=== PATIENT | female | born 1990 | race Caucasian/White ===

== ENCOUNTER 2019-04-26 10:13 | Day surgery (SDC) | payer BC ==
[2019-04-25 12:46] LABS: BASOPHILS % (AUTO) 0.5 % (0.0-2.0); EOSINOPHILS # (AUTO) 0.2 K/uL (0.0-0.4); EOSINOPHILS % (AUTO) 2.3 % (0.0-4.0); HEMATOCRIT 41.5 % (36-48); HEMOGLOBIN 14.3 g/dL (12.0-16.0); LYMPHOCYTES # (AUTO) 2.7 K/uL (1.0-5.5); LYMPHOCYTES % (AUTO) 27.9 % (20.5-51.5); MEAN CORPUSCULAR HEMOGLOBIN 32 pg (27-31); MEAN CORPUSCULAR HGB CONC 35 % (32-36); MEAN CORPUSCULAR VOLUME 93 fL (79.0-98.0); MONOCYTES # (AUTO) 0.8 K/uL (0.0-1.0); MONOCYTES % (AUTO) 7.7 % (1.7-9.3); NEUTROPHILS % (AUTO) 61.6 % (40.0-70.0); PLATELET COUNT (AUTO) 292 K/uL (130-430); RED BLOOD CELL COUNT(AUTO) 4.46 MIL/uL (4.2-6.2); RED CELL DISTRIBUTION WIDTH 13.6 % (9.0-15.0); WHITE BLOOD COUNT (AUTO) 9.8 K/uL (4.8-10.8)
[2019-04-25 12:58] LABS: INR 1.1 (0.8-1.2); PROTHROMBIN TIME 11.2 SECS (9.5-12.5)
[~2019-04-26] VITALS: Ht 149.9 cm; Wt 72.6 kg
[2019-04-26] MEDS ORDERED: fentaNYL CITRATE 250 MCG/5 ML AMP IV ONE (13:00)
[2019-04-26] MEDS ORDERED: PROPOFOL 200MG/ 20ML VIAL (DIPRIVAN) IV ONE (13:00)
[2019-04-26] MEDS ORDERED: MIDAZOLAM HCL 5 MG/5 ML VIAL IVP ONE (13:00)
[2019-04-26] MEDS ORDERED: CEFAZOLIN 2 GM IVPB PREMIX 50 ML IV ONE (13:00)
[2019-04-26] MEDS ORDERED: ONDANSETRON HCL 4 MG/2 ML VIAL IVP ONE (13:00)
[2019-04-26] MEDS ORDERED: LR 1,000 ML IV.SOLN IV ONE (13:00)
[2019-04-26] MEDS ORDERED: NS IRRIG SOLN 1000 ML IR ONE (13:00)
[2019-04-26] MEDS ORDERED: SEVOFLURANE 15 MIN GAS INH ONE (13:00)
[2019-04-26] MEDS ORDERED: ROCURONIUM BROMIDE 10 MG/ML (ZEMURON) IV ONE (13:00)
[2019-04-26 14:30] VITALS: BP_SYST 114
[2019-04-26] MEDS: MORPHINE 2 MG/ML INJ. SYRINGE IVP PRN ×2 (14:35→14:55)
[2019-04-26] MEDS ORDERED: MORPHINE 4 MG/ML INJ. SYRINGE ONE (14:46)
[2019-04-26] MEDS ORDERED: ONDANSETRON HCL 4 MG/2 ML VIAL IVP PRN (16:00)
[2019-04-26] MEDS ORDERED: LR 1,000 ML IV ONE (16:00)
[2019-04-26] MEDS ORDERED: MORPHINE SULFATE 10 MG/ML VIAL IVP PRN (16:45)
[2019-04-26] MEDS ORDERED: MORPHINE SULFATE 10 MG/ML VIAL ONE (16:55)
[2019-04-26] MEDS ORDERED: MORPHINE 4 MG/ML INJ. SYRINGE IVP PRN (17:15)
[2019-04-26] MEDS ORDERED: KETOROLAC TROMETHAMINE 30 MG VIAL IVP PRN (20:30)
[2019-04-26] MEDS: PIPERACILLIN/TAZO 3.375/DEX-IS 50 ML IV SCH (20:48)
[2019-04-26] MEDS ORDERED: KETOROLAC TROMETHAMINE 30 MG VIAL ONE (20:57)
[2019-04-26] MEDS ORDERED: KETOROLAC TROMETHAMINE 30 MG VIAL IM SCH (23:00)
[2019-04-27] MEDS: PIPERACILLIN/TAZO 3.375/DEX-IS 50 ML IV SCH ×3 (02:53→14:40)
[2019-04-27] MEDS ORDERED: KETOROLAC TROMETHAMINE 30 MG VIAL IVP PRN (05:00)
[2019-04-27 07:14] LABS: BASOPHILS % (AUTO) 0.6 % (0.0-2.0); EOSINOPHILS # (AUTO) 0.2 K/uL (0.0-0.4); EOSINOPHILS % (AUTO) 2.7 % (0.0-4.0); HEMOGLOBIN 12.3 g/dL (12.0-16.0); LYMPHOCYTES # (AUTO) 2.4 K/uL (1.0-5.5); LYMPHOCYTES % (AUTO) 29.7 % (20.5-51.5); MEAN CORPUSCULAR HEMOGLOBIN 32 pg (27-31); MEAN CORPUSCULAR HGB CONC 34 % (32-36); MEAN CORPUSCULAR VOLUME 94 fL (79.0-98.0); MONOCYTES # (AUTO) 0.9 K/uL (0.0-1.0); MONOCYTES % (AUTO) 11.4 % (1.7-9.3); NEUTROPHILS # (AUTO) 4.5 K/uL (1.8-7.7); NEUTROPHILS % (AUTO) 55.6 % (40.0-70.0); PLATELET COUNT (AUTO) 264 K/uL (130-430); RED BLOOD CELL COUNT(AUTO) 3.85 MIL/uL (4.2-6.2); RED CELL DISTRIBUTION WIDTH 13.5 % (9.0-15.0); WHITE BLOOD COUNT (AUTO) 8.1 K/uL (4.8-10.8)
[2019-04-27] MEDS ORDERED: HYDROcodone/ACETAMIN 5-325 MG TAB (NORCO/ VICODIN) PO ONE ×2 (10:15→15:00)
== END 2019-04-27 15:35 | disposition home or self-care (01) ==
LOC: SDS 10:13 → SMU 10:13 → SPU 15:51 → SDS 04-27 15:35
PROVIDERS: ATTEND Obstetrics & Gynecology
DX: Z30.2 Encounter for sterilization (principal); N73.6 Female pelvic peritoneal adhesions (postinfective); E66.3 Overweight; Z64.1 Problems related to multiparity; Z79.01 Long term (current) use of anticoagulants
CPT/HCPCS: 36415 ×2; 58600; 84703; 85025 ×2; 85610; 85730; 88302; 94760; J0690; J1885 ×2; J2250; J2270 ×2; J2405; J2543; J2704; J3010; J7120